=== PATIENT | male | born 1985 | race Caucasian/White ===

== ENCOUNTER → 2018-09-01 14:03 | Outpatient (CLI) | payer OTHER, SELFPAY ==
[2018-09-01 20:41] LABS: Semen Viscosity Normal (Normal); WBCs,Semen Large
[2018-09-01 20:42] LABS: 3Hr Motility Quality Moderate Progression (Mod-Rapid); 3Hr Sperm Motility 15 % (50-60); Motility Quality Moderate Progression (Mod-Rapid); PH,Semen 8.5 (7.3-8.3); Sperm Count 6 mil/mm3 (20-160); Sperm Morphology Head Abnormality (Normal); Sperm Motility 15 % (50-90)
== END ==
PROVIDERS: Visit Provider Specialist
DX: N46.11 Organic oligospermia (principal)
CPT/HCPCS: 89320

== ENCOUNTER 2020-11-13 10:18 | Emergency (ER) | payer OTHER, SELFPAY ==
[2020-11-13 10:19] VITALS: BP 112/88; PULSE 86; RESP 20; TEMP 37; O2SAT 99; BMI 24.3
--- NOTE | 2020-11-13 10:34 | HMH.EDUTC ---
[facility] [place] Disposition Clinical Impression: Dental abscess Disposition: Home, Self-Care Condition on Discharge: Good Instructions: Tooth Abscess, DI for Tooth Decay, Amoxicillin and Clavulanic Acid Additional Instructions: Make sure to use Dental balls as advised in the [facility] Take antibiotics as prescribed Take Ibuprofen as prescribed for pain Make sure to call and make appointment with Dentist Return if needed Straight to ER if any life threatening symptoms Prescriptions: Ibuprofen [Ibuprofen 800mg Tablet] 800 mg PO Q8HP PRN #20 tab PRN Reason: Moderate Pain Prescription Printed Amoxicillin/Potassium Clav [Augmentin 875-125 Tablet] 1 tab PO Q12H 10 Days #20 tab Prescription Printed Referrals: PCP,No [Primary Care Provider] - As needed Joshua Bear [Referring] - Time of Disposition: 10:43 Medical Decision Making - Prasanna Inquiry Pt receiving controlled substance: No Prasanna was queried for this patient: No Vital Signs: 11/13/20 10:19 Temperature 98.6 F Temperature Source Oral Pulse Rate [Right Brachial] 86 Respiratory Rate 20 Blood Pressure [Right Arm] 112/88 Blood Pressure Mean [Right Arm] 96 Blood Pressure Source [Right Arm] Automatic Cuff Blood Pressure Position [Right Arm] Sitting 02 Sat by Pulse Oximetry 99 Oxygen Delivery Method Room Air - Lab Data Lab results reviewed: Yes: I reviewed the patient's lab results. Orders (Tests/Meds): ED MEDICATIONS Discontinued Medications Generic Name Dose Route Start Last Admin Trade Name Freq PRN Reason Stop Dose Admin Benzocaine/Butamben/Tetracaine HCl 1 gm 11/13/20 10:37 11/13/20 10:42 Tetracaine/Benzocaine/Butamben 56 Gm [place] TP 11/13/20 10:38 1 gm ONCE ONE Administration Lidocaine HCl 15 ml 11/13/20 10:37 11/13/20 10:42 Lidocaine 2% Viscous Izabela 15ml Udc PO 11/13/20 10:38 15 ml ONCE ONE Administration [facility] [place] HPI - General Stated complaint: bad tooth right side Time Seen by Provider: 11/13/20 10:34 Mode of Arrival: Ambulatory Source of Information: Patient Description of Symptoms (Recalled from Triage Doc. by RN): dental infection/pain right lower teeth HEENT Symptoms (Recalled from RN notes): No Resp Symptoms (Recalled from RN notes): No Skin Symptoms (Recalled from RN notes): No MS Symptoms (Recalled from RN notes): No Functional Status (Recalled from RN notes): N/A - History of Present Illness Provider Complaint: Patient states that he has multiple broken teeth on right lower gum area State that he woke up this morning and noted he was having some swelling and pain like he has had before when he had dental infection so he came in to get some antibiotics State that he has appointment with dentist in about a month but knew he couldnt wait that long - Related Data Home Medications Medication Instructions Recorded Confirmed Buprenorphine HCl/Naloxone HCl 1 tab PO DAILY 11/13/20 11/13/20 [Buprenorphin-Naloxon 8-2 mg Sl] Previous Rx's Medication Instructions Recorded Amoxicillin/Potassium Clav 1 tab PO Q12H 10 Days #20 tab 11/13/20 [Augmentin 875-125 Tablet] Ibuprofen [Ibuprofen 800mg 800 mg PO Q8HP PRN #20 tab 11/13/20 Tablet] Allergies Allergy/AdvReac Type Severity Reaction Status Date / Time No Known Allergies Allergy Verified 11/13/20 10:36 - Worker's Comp Is this a Worker's Comp case?: No [facility] History - Hepatitis A Screen Drug use history?: No High risk sexual behaviors?: No History of sexually transmitted infection?: No Currently employed?: No Childcare worker?: No Do you have indoor plumbing?: Yes Do you have electricity?: Yes Attestation statement:: This patient has been screened for Hepatitis A risk factors. I have reviewed the patient's past medical history: Yes ROS Obtained: Yes All systems reviewed & no additional complaints, Yes Systems reviewed as appropriate & no additional complaints - Constitutional Constitutional: Reports system reviewed and
[2020-11-13 10:56] VITALS: BP 112/88; PULSE 86; RESP 20; TEMP 37; O2SAT 99
== END 2020-11-13 10:40 | disposition home or self-care (01) ==
PROVIDERS: Emergency Provider Nurse Practitioner
DX: K04.7 Periapical abscess without sinus (principal)
CPT/HCPCS: 99202; G0463

== ENCOUNTER 2024-01-08 11:41 | Outpatient (CLI) | payer OTHER, SELFPAY ==
[2024-01-15 16:15] LABS: Miscellaneous Test SCANNED IMAGE
== END 2024-01-08 23:59 | disposition home or self-care (01) ==
PROVIDERS: Visit Provider Registered Nurse General Practice
DX: F11.20 Opioid dependence, uncomplicated (principal)

== ENCOUNTER 2024-09-11 11:28 | Outpatient (CLI) | payer BC, SELFPAY ==
[2024-09-11 12:19] LABS: Basophils # 0.1 K/mm3 (0-0.2); Basophils % 0.7 % (0.1-2.0); Eosinophils # 0.4 K/mm3 (0.0-0.4); Eosinophils % 2.9 % (0.1-12.0); Hematocrit 43.8 % (42.0-52.0); Hemoglobin 14.9 g/dL (14.1-18.0); Lymphocytes # 3.4 K/mm3 (0.7-4.5); Lymphocytes % 23.5 % (10-50); Mean Corpuscular Hemoglobin 29.6 pg (27.0-31.2); Mean Corpuscular Volume 86.9 fl (80-94); Monocytes # 0.8 K/mm3 (0.1-1.0); Monocytes % 5.7 % (1.7-9.3); Neutrophils # 9.6 K/mm3 (1.8-7.8); Neutrophils % 66.7 % (37.0-80.0); Platelet Count 363 K/mm3 (142-424); Red Blood Count 5.04 M/mm3 (4.60-6.20); Red Cell Distribution Width 13.2 % (11.5-17.5); White Blood Count 14.4 K/mm3 (4.8-10.8)
[2024-09-11 12:49] LABS: Alanine Aminotransferase 43 U/L (12-78); Albumin Level 4.5 g/dl (3.5-5.0); Albumin/Globulin Ratio 2.3 (1.1-1.8); Alkaline Phosphatase 89 U/L (38-126); Anion Gap 11.9 mEq/L (5-15); Aspartate Amino Transferase 39 U/L (17-59); Bilirubin,Total 0.2 mg/dl (0.2-1.3); Blood Urea Nitrogen 9 mg/dl (9-20); Calcium 9.6 mg/dl (8.4-10.2); Carbon Dioxide 27 mmol/L (22.0-30.0); Chloride 103 mmol/L (98-107); Estimated Glomerular Filt Rate 108 ml/min (>60); GFR (African American) 131 ML/MIN (>60); Glucose 101 mg/dl (74-100); Potassium 3.9 mmoL/L (3.5-5.1); Sodium 138 mmol/L (136-145); Total Protein,Serum 6.5 g/dl (6.3-8.2)
[2024-09-11 16:27] LABS: RPR W/RFX Titers Nonreactive (Nonreactive)
[2024-09-12 05:11] LABS: HBsAg Screen Negative (Negative); HCV Ab Non Reactive (Non Reactive); HIV Screen 4th Generation wRfx Non Reactive (Non Reactive); Hep A Ab, IGM Negative (Negative); Hep A Ab, Total Negative (Negative); Hep B Core Ab, IgM Negative (Negative); Hepatitis B Surf Ab Quant <3.5 mIU/mL (Immunity>10)
[2024-09-15 21:11] LABS: QuantiFERON-TB Gold Plus Positive (Negative)
[2024-09-15 23:08] LABS: Mycoplasma genitalium, NAA Negative (Negative); Neisseria gonorrhoeae, NAA Negative (Negative); Trich vag by NAA Negative (Negative)
== END 2024-09-11 23:59 | disposition home or self-care (01) ==
PROVIDERS: Visit Provider Registered Nurse
DX: Z01.89 Encounter for other specified special examinations (principal); F19.99 Other psychoactive substance use, unspecified with unspecified psychoactive substance-induced disorder; Z20.2 Contact with and (suspected) exposure to infections with a predominantly sexual mode of transmission; Z20.5 Contact with and (suspected) exposure to viral hepatitis; Z91.89 Other specified personal risk factors, not elsewhere classified
CPT/HCPCS: 36415; 80053; 80074; 85025; 86480; 86592; 86703; 86706; 86708; 87491; 87522; 87563; 87591; 87661; G0432

== ENCOUNTER 2024-09-25 11:10 | Outpatient (CLI) | payer BC, SELFPAY ==
[2024-09-29 16:18] LABS: QuantiFERON-TB Gold Plus Negative (Negative)
== END 2024-09-25 23:59 | disposition home or self-care (01) ==
LOC: LAB 11:12
PROVIDERS: Visit Provider Registered Nurse
DX: R76.11 Nonspecific reaction to tuberculin skin test without active tuberculosis (principal); R76.12 Nonspecific reaction to cell mediated immunity measurement of gamma interferon antigen response without active tuberculosis
CPT/HCPCS: 36415; 86480